=== PATIENT | male | born 1985 | race Caucasian/White ===

== ENCOUNTER 2016-06-01 16:31 | Emergency (ER) | payer BC | END 2016-06-01 17:44 | disposition left against medical advice (07) | LOC: UCCORT 16:31 | DX: J02.9 Acute pharyngitis, unspecified (principal); R09.89 Other specified symptoms and signs involving the circulatory and respiratory systems; Z53.21 Procedure and treatment not carried out due to patient leaving prior to being seen by health care provider ==

== ENCOUNTER 2016-06-04 17:23 | Emergency (ER) | payer BC ==
[2016-06-04 17:58] VITALS: BP 134/82
[2016-06-04] MEDS ORDERED: guaiFENesin/CODIEN 100MG-10MG* 5 ML UDC PO ONE (18:07)
[2016-06-04] MEDS ORDERED: Albuterol HFA INHALER* 8 gm MDI INH ONE (18:07)
--- NOTE | 2016-06-04 18:16 | UC ---
Respiratory Complaint HPI - HPI Summary HPI Summary: sinus sypmtoms that have resolved and has had lingering cough and SOB worse at night. - History of Current Complaint Chief Complaint: UCGeneralIllness Stated Complaint: COUGH/CONGESTION Time Seen by Provider: 06/04/16 18:01 Hx Obtained From: Patient Onset/Duration: Sudden Onset, Lasting Weeks Timing: Constant Severity Initially: Mild Severity Currently: Moderate Pain Intensity: 5 Pain Scale Used: 0-10 Numeric Character: Cough: Nonproductive Aggravating Factors: Exertion, Deep Breaths, Recumbent Position Associated Signs And Symptoms: Positive: URI - Risk Factors Pulmonary Embolism Risk Factors: Negative - Allergies/Home Medications Allergies/Adverse Reactions: Allergies Allergy/AdvReac Type Severity Reaction Status Date / Time Amoxicillin AdvReac Diarrhea Verified 06/04/16 17:59 Ampicillin AdvReac Diarrhea Verified 06/04/16 17:59 Home Medications: Home Medications Cetirizine* [ZyrTEC*] 10 mg PO DAILY PRN 06/04/16 [History Confirmed 06/04/16] Omeprazole CAP* [Prilosec CAP* 20 MG] 20 mg PO BEDTIME 06/04/16 [History Confirmed 06/04/16] PMH/Surg Hx/FS Hx/Imm Hx Previously Healthy: Yes Respiratory History Of: Reports: Asthma - CHILDHOOD - Surgical History Surgical History: Yes Surgery Procedure, Year, and Place: R KNEE ARTHROSCOPIC SX TORN ACL AND MENISCUS. LEFT PATELLA RELOCATION - Family History Known Family History: Negative: Cardiac Disease, Hypertension - Social History Alcohol Use: Occasionally Substance Use Type: None Smoking Status (MU): Never Smoked Tobacco Review of Systems Constitutional: Negative Skin: Negative Eyes: Negative ENT: Epistaxis Respiratory: Shortness Of Breath, Cough Cardiovascular: Negative Gastrointestinal: Negative Genitourinary: Negative Motor: Negative Neurovascular: Negative Musculoskeletal: Negative Neurological: Negative Psychological: Negative All Other Systems Reviewed And Are Negative: Yes Physical Exam Triage Information Reviewed: Yes Appearance: No Pain Distress, Well-Nourished, Ill-Appearing Vital Signs: Initial Vital Signs Pulse 93 06/04/16 17:50 Resp 16 06/04/16 17:50 BP 134/82 06/04/16 17:50 Pulse Ox 99 06/04/16 17:50 Vital Signs Reviewed: Yes Eye Exam: Normal Eyes: Positive: Conjunctiva Clear ENT Exam: Normal ENT: Positive: Normal ENT inspection, Hearing grossly normal, Pharynx normal, TMs normal Dental Exam: Normal Neck exam: Normal Neck: Positive: Supple, Nontender Respiratory: Positive: No respiratory distress, No accessory muscle use, Decreased breath sounds, Wheezing, Inspiration Cardiovascular Exam: Normal Cardiovascular: Positive: RRR, No Murmur, Pulses Normal Bowel Sounds: Positive: Present Musculoskeletal Exam: Normal Musculoskeletal: Positive: Strength Intact, ROM Intact, No Edema Neurological Exam: Normal Neurological: Positive: Alert, Muscle Tone Normal Psychological Exam: Normal Skin Exam: Normal UC Diagnostic Evaluation - Laboratory O2 Sat by Pulse Oximetry: 99 Respiratory Course/Dx - Course Course Of Treatment: hx obtained, exam performed, medication dispensed and prescribed. - Differential Dx/Diagnosis Differential Diagnosis/HQI/PQRI: Aspiration, Asthma, Bronchitis, Influenza, Laryngitis, SARS, Sinusitis, Other Provider Diagnoses: bronchospasm Discharge - Discharge Plan Condition: Stable Disposition: HOME Prescriptions: guaiFENesin/CODIEN 100MG-10MG* [Robitussin AC 100Mg-10Mg*] 10 ml PO BEDTIME PRN #100 ml MDD 10 ml PRN Reason: Cough predniSONE TAB* [Deltasone TAB*] 40 mg PO DAILY #10 tab Patient Education Materials: Bronchospasm (ED) Referrals: Trevor Mosqueda DO [Primary Care Provider] - Additional Instructions: Take the medication as prescribed. Increase yoru fluid intake and get plenty of rest. Follow up with any increase in symptoms.
== END 2016-06-04 18:26 | disposition home or self-care (01) ==
LOC: UCCORT 17:23
DX: J98.01 Acute bronchospasm (principal); Z88.0 Allergy status to penicillin
CPT/HCPCS: 99213; A9270-GY; G0463

== ENCOUNTER 2016-12-12 21:16 | Emergency (ER) | payer BC ==
[2016-12-12 21:23] VITALS: BP 137/97
--- NOTE | 2016-12-12 21:29 | UC ---
Complaint Male HPI - HPI Summary HPI Summary: 31 y/o male presents to the urgent care c/o burning on urination for the past week. Pt states his partner was recently diagnosed with UTI. Pt denies HX of STD 's, denies penile discharge, hematuria, lower back pain, N/V/D. fever, chest pain. He would like to screen for GC/Chalmydia. Pt has not other complains. - History of Current Complaint Chief Complaint: UCGU Stated Complaint: URINARY Time Seen by Provider: 12/12/16 21:27 Hx Obtained From: Patient Onset/Duration: Gradual Onset, Lasting Days, Still Present Timing: Constant, Lasting Days Severity Initially: Mild Severity Currently: Moderate Pain Intensity: 4 Pain Scale Used: 0-10 Numeric Location: Penis - penile urethra with redness Character: Burning Aggravating Factor(s): Voiding Alleviating Factor(s): Nothing Associated Signs And Symptoms: Positive: Dysuria. Negative: Back Pain, Fever, Hematuria, Blood in Stool, Rectal Pain, Nausea, Vomiting(# Of Episodes =), Penile Swelling, Penile Discharge - Risk Factors Testicular Torsion: Negative - Allergies/Home Medications Allergies/Adverse Reactions: Allergies Allergy/AdvReac Type Severity Reaction Status Date / Time Amoxicillin AdvReac Diarrhea Verified 12/12/16 21:23 Ampicillin AdvReac Diarrhea Verified 12/12/16 21:23 PMH/Surg Hx/FS Hx/Imm Hx Previously Healthy: Yes - Surgical History Surgical History: Yes Surgery Procedure, Year, and Place: R KNEE ARTHROSCOPIC SX TORN ACL AND MENISCUS. LEFT PATELLA RELOCATION. 4 knee surgeries - Family History Known Family History: Positive: Hypertension Negative: Cardiac Disease - Social History Occupation: Employed Full-time Lives: With Family Alcohol Use: Occasionally Substance Use Type: None Smoking Status (MU): Never Smoked Tobacco Review of Systems Constitutional: Negative Skin: Negative Eyes: Negative ENT: Negative Respiratory: Negative Cardiovascular: Negative Gastrointestinal: Negative Genitourinary: Dysuria, Frequency Motor: Negative Neurovascular: Negative Musculoskeletal: Negative Neurological: Negative Psychological: Negative All Other Systems Reviewed And Are Negative: Yes Physical Exam Triage Information Reviewed: Yes Appearance: Well-Appearing, No Pain Distress, Well-Nourished Vital Signs: Initial Vital Signs Temp 97.9 F 12/12/16 21:19 Pulse 80 12/12/16 21:19 Resp 16 12/12/16 21:19 BP 137/97 08/15/17 21:19 Pulse Ox 100 12/12/16 21:19 Vital Signs Reviewed: Yes Eye Exam: Normal Eyes: Positive: Conjunctiva Clear - PERRLA, EOMI ENT Exam: Normal ENT: Positive: Normal ENT inspection, Hearing grossly normal, Pharynx normal, TMs normal Dental Exam: Normal Neck exam: Normal Neck: Positive: Supple, Nontender, No Lymphadenopathy Respiratory Exam: Normal Respiratory: Positive: Chest non-tender, Lungs clear Cardiovascular Exam: Normal Cardiovascular: Positive: RRR, No Murmur, Pulses Normal Abdominal Exam: Normal Abdomen Description: Positive: Nontender, No Organomegaly, Soft, Other: - Pt declined exam. Negative: CVA Tenderness (R), CVA Tenderness (L) Bowel Sounds: Positive: Present Musculoskeletal Exam: Normal Neurological Exam: Normal Psychological Exam: Normal Skin Exam: Normal Complaint Male Course/Dx - Course Course Of Treatment: 31 y/o male presents to the urgent care c/o burning on urination for the past week. Pt states his partner was recently diagnosed with UTI. Pt denies HX of STD's, denies penile discharge, hematuria, lower back pain, N/V/D. fever, chest pain. Pt has not other complains. HX obtained. PE: WNL. Pt decline exam. But states has redness around the meatus. UA: positive for leukoesteraces 1+H, urine trace +. Pt given prophylactic treatmetn for GC/Chlamydia. Given Rocefin IM inj and 2g PO of Azitromycin. Pt tolerated well medication. Urine sent to lab for urine culture, GC/Chl, tricomonas. Pt Rx Bactrim Po for UTI and advised if anything abnormal, he will receive a call from us for further treatment. PT BP is levated w/o Hx of HTN. Pt advised to decrease salt in hs diet and monitor BP if continues to be levated to f/u with PCP. Pt understood and agreed. - Differential Dx/Diagnosis Differential Diagnosis/HQI/PQRI: Epididymitis, Prostatitis, Ureteral Calculi, Urinary Tract Infection, Other - STD's Provider Diagnoses: 1- Urinary tract infection. 2- Sexually transmitted disease screening. 3-Elevated Blood pressure w/o Hx of HTN Discharge - Discharge Plan Condition: Stable Disposition: HOME Prescriptions: Sulfamethox/Trimethoprim DS* [Bactrim DS 800/160 TAB*] 1 tab PO BID #14 tab Patient Education Materials: Urinary Tract Infection in Men (ED), Sexually Transmitted Diseases in Adolescents (ED), Low Sodium Diet (ED) Referrals: Sonya Fernando MD [Primary Care Provider] - If Needed Additional Instructions: 1- you have been treated prophylactically for GC/chlamydia. 2- Take full course of antibiotic to avoid resistance. 3- Urine has been sent to lab for culture if anything abnormal you will receive a call from us for further treatment 4- If not improvement of symptoms please f/u with your PCP or return to the urgent care for further treatment. 5- Your BP today is elevated, please decrease salt in your diet, continue monitor your BP is continues to be elevated please f/u with your PCP.
[2016-12-12] MEDS ORDERED: cefTRIAXone VIAL(*) 250 MG VIAL IM ONE (21:43)
[2016-12-12] MEDS ORDERED: Azithromycin TAB* 250 MG PO ONE (21:48)
== END 2016-12-12 22:15 | disposition home or self-care (01) ==
LOC: UCCORT 21:16
DX: N39.0 Urinary tract infection, site not specified (principal); Z11.3 Encounter for screening for infections with a predominantly sexual mode of transmission; R03.0 Elevated blood-pressure reading, without diagnosis of hypertension; Z88.0 Allergy status to penicillin
CPT/HCPCS: 81003; 87086; 87491; 87591; 96372; 99212; A9270-GY; G0463; J0696

== ENCOUNTER 2018-09-20 08:09 | Emergency (ER) | payer BC ==
[2018-09-20 08:34] VITALS: BP 115/85
--- NOTE | 2018-09-20 09:19 | UC ---
Respiratory Complaint HPI - HPI Summary HPI Summary: 33 yo male with a 6 day hx of sinus pressure and pain/cough/upper dental sensitivity/fever/chills and wheezing Has a hx of childhood asthma and frequently gets bronchospastic when ill no cp or sob no n/v/d - History of Current Complaint Chief Complaint: UCGeneralIllness Stated Complaint: SINUSES Time Seen by Provider: 09/20/18 09:09 Hx Obtained From: Patient Onset/Duration: Gradual Onset Timing: Constant Severity Initially: Mild Severity Currently: Moderate Pain Intensity: 0 Pain Scale Used: 0-10 Numeric Character: Cough: Nonproductive Aggravating Factors: Nothing Associated Signs And Symptoms: Positive: Fever, Chills, Wheezing, Nasal Congestion, Hoarseness, Sinus Discomfort Related History: Seasonal Allergies - Allergies/Home Medications Allergies/Adverse Reactions: Allergies Allergy/AdvReac Type Severity Reaction Status Date / Time amoxicillin Allergy Diarrhea Verified 09/20/18 08:35 ampicillin Allergy Diarrhea Verified 09/20/18 08:35 Home Medications: Home Medications Omeprazole 1 tab PO DAILY 09/20/18 [History Confirmed 09/20/18] guaiFENesin [Mucinex] 1 tab PO Q12H 09/20/18 [History Confirmed 09/20/18] PMH/Surg Hx/FS Hx/Imm Hx Previously Healthy: Yes Respiratory History: Asthma, Bronchitis - Surgical History Surgical History: Yes Surgery Procedure, Year, and Place: R KNEE ARTHROSCOPIC SX TORN ACL AND MENISCUS. Bilateral PATELLA RELOCATION. 4 knee surgeries - Family History Known Family History: Positive: Hypertension Negative: Cardiac Disease, Diabetes, Respiratory Disease - Social History Alcohol Use: None Substance Use Type: None Smoking Status (MU): Never Smoked Tobacco Review of Systems All Other Systems Reviewed And Are Negative: Yes Constitutional: Positive: Fever, Chills, Fatigue Skin: Positive: Negative Eyes: Positive: Negative ENT: Positive: Nasal Discharge, Sinus Congestion, Sinus Pain/Tenderness Respiratory: Positive: Cough, Other - wheezing Cardiovascular: Positive: Negative Gastrointestinal: Positive: Negative Genitourinary: Positive: Negative Motor: Positive: Negative Neurovascular: Positive: Negative Musculoskeletal: Positive: Negative Neurological: Positive: Negative Psychological: Positive: Negative Is Patient Immunocompromised?: Yes Physical Exam Triage Information Reviewed: Yes Appearance: Well-Appearing, No Pain Distress, Well-Nourished Vital Signs: Initial Vital Signs Temp 97.8 F 09/20/18 08:27 Pulse 84 09/20/18 08:27 Resp 18 09/20/18 08:27 BP 115/85 09/20/18 08:27 Pulse Ox 99 09/20/18 08:27 Vital Signs Reviewed: Yes Eyes: Positive: Conjunctiva Clear ENT: Positive: Hearing grossly normal, Nasal congestion, Nasal drainage, TMs normal, Sinus tenderness, Uvula midline. Negative: Tonsillar swelling, Tonsillar exudate, Trismus, Muffled voice, Hoarse voice, Dental tenderness Dental Exam: Normal Neck: Positive: Supple, Nontender, No Lymphadenopathy Respiratory: Positive: Normal breath sounds, No respiratory distress, No accessory muscle use, Wheezing - with forced expiration Cardiovascular: Positive: RRR, No Murmur Musculoskeletal: Positive: ROM Intact, No Edema Neurological: Positive: Alert Psychological Exam: Normal Skin Exam: Normal Respiratory Course/Dx - Differential Dx/Diagnosis Provider Diagnosis: Sinusitis, acute, Bronchospasm Discharge - Sign-Out/Discharge Documenting (check all that apply): Patient Departure All imaging exams completed and their final reports reviewed: No Studies - Discharge Plan Condition: Stable Disposition: HOME Prescriptions: Albuterol HFA INHALER* [Ventolin HFA Inhaler*] 2 puff INH QID #1 mdi Azithromycin TAB* [Zithromax TAB*] 250 mg PO DAILY #6 tab predniSONE [Deltasone 20 MG TAB] 40 mg PO DAILY #10 tab Patient Education Materials: Sinusitis (ED), Bronchospasm (ED) Referrals: Sonya Fernando MD [Primary Care Provider] - 5 Days (if not better) Additional Instructions: for nasal congestion/sinus pressure: you can try SALINE NASAL SPRAY 2 sprays each nostril twice daily follow by FLONASE 2 sprays each nostril twice daily - Billing Disposition and Condition Condition: STABLE Disposition: Home
== END 2018-09-20 09:27 | disposition home or self-care (01) ==
LOC: UCCORT 08:09
DX: J01.90 Acute sinusitis, unspecified (principal); J98.01 Acute bronchospasm; Z88.0 Allergy status to penicillin
CPT/HCPCS: 99212; G0463

== ENCOUNTER 2019-01-21 07:36 | Emergency (ER) | payer BC ==
[2019-01-21 08:41] VITALS: BP 112/80
--- NOTE | 2019-01-21 09:04 | UC ---
Respiratory Complaint HPI - HPI Summary HPI Summary: cough x 4 days cough is productive with clear sputum + cold symptoms with runny nose, nasal congestion , sore throat, pnd and sinus pressure no fever, no chills, no sob or wheezing - History of Current Complaint Chief Complaint: UCRespiratory Stated Complaint: SINUSES / CHEST CONJUST Time Seen by Provider: 01/21/19 08:58 Hx Obtained From: Patient Onset/Duration: Gradual Onset, Lasting Days - 4, Still Present Timing: Constant Severity Initially: Moderate Severity Currently: Moderate Pain Intensity: 0 Character: Cough: Productive Aggravating Factors: Exertion, Deep Breaths Alleviating Factors: Nothing Associated Signs And Symptoms: Positive: URI, Nasal Congestion. Negative: Dyspnea, Fever, Wheezing - Allergies/Home Medications Allergies/Adverse Reactions: Allergies Allergy/AdvReac Type Severity Reaction Status Date / Time amoxicillin Allergy Diarrhea Verified 01/21/19 08:37 ampicillin Allergy Diarrhea Verified 01/21/19 08:37 Home Medications: Home Medications Guaifenesin/Dextromethorphan [Mucinex Dm Maximum Streng 60-1200 mg] 1 tab PO DAILY PRN 01/21/19 [History Confirmed 01/21/19] Omeprazole CAP (NF) [Prilosec CAP* 20 MG] 20 mg PO DAILY 01/21/19 [History Confirmed 01/21/19] PMH/Surg Hx/FS Hx/Imm Hx Previously Healthy: Yes - Surgical History Surgical History: Yes Surgery Procedure, Year, and Place: R KNEE ARTHROSCOPIC SX TORN ACL AND MENISCUS. Bilateral PATELLA RELOCATION. 4 knee surgeries - Family History Known Family History: Positive: Hypertension Negative: Cardiac Disease, Diabetes, Respiratory Disease - Social History Alcohol Use: None Substance Use Type: None Smoking Status (MU): Never Smoked Tobacco Review of Systems All Other Systems Reviewed And Are Negative: Yes Constitutional: Positive: Negative Skin: Positive: Negative Eyes: Positive: Negative ENT: Positive: Sore Throat, Nasal Discharge, Sinus Congestion Respiratory: Positive: Cough Cardiovascular: Positive: Negative Gastrointestinal: Positive: Negative Is Patient Immunocompromised?: No Physical Exam Triage Information Reviewed: Yes Appearance: Well-Appearing, No Pain Distress, Well-Nourished Vital Signs: Initial Vital Signs Temp 98.2 F 01/21/19 08:36 Pulse 82 01/21/19 08:36 Resp 18 01/21/19 08:36 BP 112/80 01/21/19 08:36 Pulse Ox 99 01/21/19 08:36 Vital Signs Reviewed: Yes Eye Exam: Normal Eyes: Positive: Conjunctiva Clear ENT: Positive: Normal ENT inspection, Hearing grossly normal, Pharynx normal, Nasal congestion, TMs normal Neck exam: Normal Neck: Positive: Supple, Nontender, No Lymphadenopathy Respiratory: Positive: Chest non-tender, Lungs clear, Normal breath sounds Cardiovascular: Positive: RRR, No Murmur, Pulses Normal Skin Exam: Normal Respiratory Course/Dx - Differential Dx/Diagnosis Provider Diagnosis: URI (upper respiratory infection) Discharge ED - Sign-Out/Discharge Documenting (check all that apply): Patient Departure All imaging exams completed and their final reports reviewed: No Studies - Discharge Plan Condition: Stable Disposition: HOME Patient Education Materials: Upper Respiratory Infection (DC) Referrals: Sonya Fernando MD [Primary Care Provider] - If Needed - Billing Disposition and Condition Condition: STABLE Disposition: Home
== END 2019-01-21 09:06 | disposition home or self-care (01) ==
LOC: UCCORT 07:36
DX: J06.9 Acute upper respiratory infection, unspecified (principal); Z88.0 Allergy status to penicillin
CPT/HCPCS: 99211; G0463

== ENCOUNTER 2019-03-18 13:05 | Emergency (ER) | payer BC ==
[2019-03-18 13:49] VITALS: BP 122/84
--- NOTE | 2019-03-18 14:11 | UC ---
Throat Pain/Nasal Tee HPI - HPI Summary HPI Summary: Pt presents with c/o productive cough with brown/yellow in cover. c/o sinus pressure and pain X 10 days. - History of Current Complaint Chief Complaint: UCRespiratory Stated Complaint: COUGH,CONGESTION Time Seen by Provider: 03/18/19 14:03 Hx Obtained From: Patient Onset/Duration: Gradual Onset, Lasting Days, Still Present, Worse Since - onset Severity: Moderate Pain Intensity: 0 Cough: Sputum Appears - brown/yellow Associated Signs & Symptoms: Positive: Sinus Discomfort Related History: Seasonal Allergies - Epiglottits Risk Factors Epiglottis Risk Factors: Negative - Allergies/Home Medications Allergies/Adverse Reactions: Allergies Allergy/AdvReac Type Severity Reaction Status Date / Time amoxicillin Allergy Diarrhea Verified 01/21/19 08:37 ampicillin Allergy Diarrhea Verified 03/18/19 13:39 Home Medications: Home Medications Albuterol HFA INHALER* [Ventolin HFA Inhaler*] 2 puff INH Q4H PRN 03/18/19 [ History Confirmed 03/18/19] Cetirizine* [ZyrTEC 10 MG TAB*] 10 mg PO DAILY 03/18/19 [History Confirmed 03/18] Dm/PE/Acetaminophen/Doxylamine [Vicks Dayquil-Nyquil Cold-Flu] 1 each PO DAILY PRN 03/18/19 [History Confirmed 03/18/19] PMH/Surg Hx/FS Hx/Imm Hx Previously Healthy: Yes - Surgical History Surgical History: Yes Surgery Procedure, Year, and Place: R KNEE ARTHROSCOPIC SX TORN MCL. Bilateral PATELLA RELOCATION. 4 knee surgeries. TONSILLECTOMY - Family History Known Family History: Positive: Hypertension Negative: Cardiac Disease, Diabetes, Respiratory Disease - Social History Occupation: Employed Full-time Lives: With Family Alcohol Use: None Substance Use Type: None Smoking Status (MU): Never Smoked Tobacco Have You Smoked in the Last Year: No - Immunization History Vaccination Up to Date: Yes Review of Systems All Other Systems Reviewed And Are Negative: Yes Constitutional: Positive: Chills, Fatigue Skin: Positive: Negative Eyes: Positive: Negative ENT: Positive: Nasal Discharge, Sinus Congestion, Sinus Pain/Tenderness Respiratory: Positive: Cough Cardiovascular: Positive: Negative Gastrointestinal: Positive: Negative Genitourinary: Positive: Negative Motor: Positive: Negative Neurovascular: Positive: Negative Musculoskeletal: Positive: Myalgia Neurological: Positive: Headache Psychological: Positive: Negative Is Patient Immunocompromised?: No Physical Exam Triage Information Reviewed: Yes Appearance: Ill-Appearing Vital Signs: Initial Vital Signs Temp 97.5 F 03/18/19 13:41 Pulse 94 03/18/19 13:41 Resp 17 03/18/19 13:41 BP 122/84 03/18/19 13:41 Pulse Ox 99 03/18/19 13:41 Vital Signs Reviewed: Yes Eye Exam: Normal ENT: Positive: Nasal congestion, Sinus tenderness Dental Exam: Normal Neck exam: Normal Respiratory Exam: Normal Cardiovascular Exam: Normal Musculoskeletal Exam: Normal Neurological Exam: Normal Psychological Exam: Normal Skin Exam: Normal Throat Pain/Nasal Course/Dx - Differential Dx/Diagnosis Differential Diagnosis/HQI/PQRI: Sinusitis, URI Provider Diagnosis: Sinusitis, Productive cough Discharge ED - Sign-Out/Discharge Documenting (check all that apply): Patient Departure All imaging exams completed and their final reports reviewed: No Studies - Discharge Plan Condition: Stable Disposition: HOME Prescriptions: Benzonatate CAP* [Tessalon 100 MG CAP*] 100 mg PO Q8H PRN #30 cap PRN Reason: Cough DOXYcycline CAP(*) [DOXYcycline 100MG CAP(*)] 100 mg PO Q12H #20 cap predniSONE TAB* [Deltasone 20 MG TAB*] 60 mg PO DAILY #12 tab Patient Education Materials: Sinusitis (ED), Acute Cough (ED) Referrals: Sonya Fernando MD [Primary Care Provider] - If Needed - Billing Disposition and Condition Condition: STABLE Disposition: Home
== END 2019-03-18 14:18 | disposition home or self-care (01) ==
LOC: UCCORT 13:05
DX: R05 Cough (principal); J32.9 Chronic sinusitis, unspecified; R68.83 Chills (without fever); R53.83 Other fatigue; M79.10 Myalgia, unspecified site; Z88.0 Allergy status to penicillin
CPT/HCPCS: 99202; G0463